=== PATIENT | female | born 1990 | race Caucasian/White ===

== ENCOUNTER 2024-04-30 03:36 | Outpatient (CLI) | payer OTHER, SELFPAY ==
[2024-04-30 14:22] LABS: Abs Immature Grans 0.07 10^3/uL (0.0-0.06); Absolute Basophil Count 0.02 10^3/uL (0.0-0.2); Absolute Eosinophil Count 0.37 10^3/uL (0.0-0.7); Absolute Lymphocyte Count 3.11 10^3/uL (1.2-3.4); Absolute Monocyte Count 0.57 10^3/uL (0.1-0.8); Basophils % 0.2 %; HCT 39.1 % (36.0-46.0); HGB 13.4 g/dL (11.2-15.7); Immature Grans % 0.6 %; Lymphocytes % 24.9 %; MCH 30.8 pg (27.0-33.0); MCHC 34.3 % (32.0-36.0); MCV 90 fL (80-95); MPV 10.1 fL (8.0-11.0); Monocytes % 4.6 %; Neutrophils % 66.7 %; Platelet Count 235 10^3/uL (130-400); RBC 4.35 10^6/uL (3.93-5.22); RDW 11.9 % (11.7-14.6); RDW-SD 39.2 fL; WBC 12.49 10^3/uL (4.4-10.8)
[2024-04-30 14:34] LABS: Absolute Neutrophil Count 8.33 10^3/uL (1.2-6.7)
[2024-05-01 09:18] LABS: Rubella IgG Ab (UVM) Positive (See Note); Varicella IgG Antibody Positive (See Note)
[2024-05-01 11:05] LABS: Hepatitis B Surface Ag Negative (Negative)
[2024-05-01 11:37] LABS: Hepatitis C Ab w Rflx HCV PCR Negative (Negative)
[2024-05-01 12:00] LABS: HIV-1/2 Ag & Ab Screen Negative (Negative)
[2024-05-02 15:27] LABS: Syphilis IgG w/Reflex Nonreactive (Nonreactive)
== END 2024-04-30 03:37 | disposition home or self-care (01) ==
LOC: LBO 03:37
PROVIDERS: PCP Family Medicine; Visit Provider Advanced Practice Midwife
DX: Z34.91 Encounter for supervision of normal pregnancy, unspecified, first trimester (principal)
CPT/HCPCS: 36415; 86787; 86803; 86850; 86900; 86901; 87340; 87389; 85025; 86762; 86780

== ENCOUNTER 2024-04-30 14:14 | Outpatient (REF) | payer OTHER, SELFPAY ==
[2024-05-01 12:56] LABS: Chlamydia Result Negative (Negative); GC Result Negative (Negative)
== END 2024-04-30 14:15 | disposition home or self-care (01) ==
LOC: LBN 14:14
PROVIDERS: PCP Family Medicine; Visit Provider Advanced Practice Midwife
DX: Z34.91 Encounter for supervision of normal pregnancy, unspecified, first trimester (principal)
CPT/HCPCS: 87491; 87591

== ENCOUNTER 2024-08-17 02:33 | Outpatient (CLI) | payer OTHER, SELFPAY ==
[2024-08-17 11:52] LABS: Glucose,1 Hr (Glucola) 129 mg/dL (80-140); HCT 36.8 % (36.0-46.0); HGB 12.3 g/dL (11.2-15.7); MCH 31.1 pg (27.0-33.0); MCHC 33.4 % (32.0-36.0); MCV 93 fL (80-95); MPV 9.8 fL (8.0-11.0); Platelet Count 200 10^3/uL (130-400); RBC 3.95 10^6/uL (3.93-5.22); RDW 12.1 % (11.7-14.6); RDW-SD 41.8 fL
== END 2024-08-17 02:34 | disposition home or self-care (01) ==
LOC: LBO 02:33
PROVIDERS: PCP Family Medicine; Visit Provider Advanced Practice Midwife
DX: Z34.92 Encounter for supervision of normal pregnancy, unspecified, second trimester (principal)
CPT/HCPCS: 36415; 82950; 85027

== ENCOUNTER 2024-10-14 01:41 | Outpatient (CLI) | payer OTHER, SELFPAY ==
--- NOTE | 2024-10-14 07:30 | DI.US_ITS ---
Exam(s) US OB CARMEN WEIGHT EXAM: US OB CARMEN WEIGHT CLINICAL HISTORY: TECHNIQUE: Ultrasound performed using standard protocol. COMPARISON: US US OB F/U FACIAL/LVOT/RVOT from 08/18/2024 FINDINGS: Again noted is a single viable intrauterine gestation with cardiac activity identified-137 BPM. The fetus is presently in breech position Placenta is fundal posterior grade 2, no evidence of placenta previa. With respect of the previously described 4.8 x 4.5 cm anterior uterine fibroid, this was not seen on today's study. There is normal amount of amniotic fluid with an CARMEN of 12.91 cm Dating parameters places at approximately 38 weeks and 1 day gestational age, implying JAMES of October 27, 2024 BPD measures 38 weeks and 4 days Head circumference measures 39 weeks and 6 days Abdominal circumference measures 37 weeks and 2 days Femur length measures 37 weeks and 0 days Estimated weight is 3275 grams: 7 pounds, 4 ounces. Fetus is at the 76th percentile on the Hadlock scale IMPRESSION: Single viable 3rd trimester gestation as described above. DATA REPOSITORY:
== END 2024-11-02 16:19 ==
LOC: DI 01:41 → OBS 11-02 16:13
PROVIDERS: PCP Family Medicine; Visit Provider Advanced Practice Midwife
DX: N85.8 Other specified noninflammatory disorders of uterus (principal); Z34.93 Encounter for supervision of normal pregnancy, unspecified, third trimester; Z3A.39 39 weeks gestation of pregnancy
CPT/HCPCS: 76816

== ENCOUNTER 2024-10-14 13:51 | Outpatient (REF) | payer OTHER, SELFPAY | END 2024-10-14 13:52 | disposition home or self-care (01) | LOC: LBN 13:51 | PROVIDERS: PCP Family Medicine; Visit Provider Advanced Practice Midwife | DX: Z34.93 Encounter for supervision of normal pregnancy, unspecified, third trimester (principal) | CPT/HCPCS: 87081 ==

== ENCOUNTER 2024-11-02 16:40 | Inpatient (IN) | payer OTHER, SELFPAY ==
[2024-11-02] VITALS (11 sets, daily range): BP systolic 114–144; BP diastolic 71–88; PULSE 72–93; TEMP 36.4–36.6
[2024-11-02 17:39] LABS: HCT 40.6 % (36.0-46.0); HGB 13.7 g/dL (11.2-15.7); MCH 30.7 pg (27.0-33.0); MCHC 33.7 % (32.0-36.0); MCV 91 fL (80-95); Platelet Count 183 10^3/uL (130-400); RBC 4.46 10^6/uL (3.93-5.22); RDW 12.3 % (11.7-14.6); RDW-SD 40.5 fL; WBC 13.23 10^3/uL (4.4-10.8)
--- NOTE | 2024-11-02 17:41 | W.PM.OBHPL1 ---
Date of service: 11/02/24 Time of Service: 17:41 Assessment and Plan Assessment and plan (1) Spontaneous onset of labor: Status: Acute Assessment and plan: Admit to Center and routine admission labs. Comfort measures. Anticipate . OB-HPI Labor/Delivery History of Present Illness Reason for Visit: Term Labor Chief Complaint: Uterine Contractions. JAMES Calculator Estimated Delivery Date Method Current WG Current Estimate 11/05/24 LMP (Certain) 39w 4d Other Estimates 11/03/24 Ultrasound #1 39w 6d Comments: Sherin began experiencing contractions at 2100 last night. She slept for 4 hours and mild contractions resumed at 0500 with scant bloody show. [facility] and stripping of membranes was performed by Quin Milan CNM. She returns with stronger contractions. History of Present Expected Delivery Route/Plan - CNM FOB-Mike Ramos (2nd child together) Does not wish to know gender- yes to circ if male Unmedicated, open to waterbirth, wants to move around GBS negative Specific Issues/Plan 1. Started care at [facility], L CL cyst noted on US. 2. Ovolacto-vegetarian. 3. Declined CfDNA, and AFP. 4. uterine mass vs fibroid identified on anatomy scan, consult with Dr. Burns, repeat US scheduled 4a. u/s 06/17/24: fundal/right placenta, anterior fibroid versus part of anterior aspect of the placenta, repeat 3rd trimester 4b. f/up u/s in 3rd trimester: @ 28 wks fibroid 4.8 x 4.5, anterior, size stable per report, fetus breech 4c. Recheck for fibroid size @ 36 wks, also EFW/CARMEN: 77th%, CARMEN 13, anterior fibroid not seen, breech 5. Breech presentation: desires ECV. Counselled 10/14 - scheduled 10/19. Baby Vertex! - Recheck presentation at next visit. Assessment: History Reviewed & Current PFSH All Active Problems (Updated 11/02/24 @ 17:45 by Johanna Almodovar CNM) Spontaneous onset of labor (Acute) Uterine mass (Acute) (Acute) Medical History (Updated 11/02/24 @ 17:45 by Johanna Almodovar CNM) Constipation Family History (Updated 04/30/24 @ 13:22 by Johanna Almodovar CNM) Maternal Grandmother No problems noted. Maternal Grandfather No problems noted. Father No problems noted. Social History (Updated 04/16/24 @ 11:38 by Johanna Almodovar CNM) Smoking/Tobacco Use Status: Never Smoking risk assessment performed?: Yes Alcohol Intake: never Drug use: Never Housing: house History History 2 Para 1 Hx # Term Pregnancies 1 Multiple births 0 Hx # Pregnancies 0 Ectopic pregnancies 0 AB induced 0 Hx Number of Living Children 1 AB spontaneous 0 Past Pregnancies Del. Date GA/Weeks # Preg Succ Route Wgt Sex Labor Lgth Anesthesia Location Prov Complic 05/29/21 39 No Yes vaginal 8 lb Female 12 hours local [place] Delivery Date: 05/29/21 Last Updated by: Johanna Almodovar CNM [employer] Meds Allergies and Home Medications Allergies Allergy/AdvReac Type Severity Reaction Status Date / Time No Known Allergies Allergy Verified 11/02/24 10:23 Home Medications ?Medication ?Instructions ?Recorded ?Confirmed ?Type lactobacillus combination no.4 3 3,000 mmu cells PO DAILY 04/30/24 11/02/24 History billion cell capsule (Probiotic) vitamin #56-iron 35 mg 1 cap PO DAILY 04/30/24 11/02/24 History and 5 mg-folic acid 1 mg-dha capsule magnesium 250 mg tablet 500 mg PO TID 09/14/24 11/02/24 History Exam Physical Exam Vital Signs Reviewed: Yes Constitutional Constitutional: mild distress Detailed Labor and Delivery Exam Dilation: 2 Effacement (%): 80 station: -2 Cervix position: posterior Consistency: soft Amin Score: Cervical Points Exam 0 1 2 3 Dilation Closed 1-2cm 3-4 cm 5-6cm Effacement 0-30% 40-50% 60-70% 80% Consistency Firm Medium Soft Station -3 -2 -1,0 +1,+2 Position Posterior Mid Anterior Amniotic Membrane Status: Intact Monitor Mode: External Contraction Frequency(min): every 3-4 min Contraction Duration(sec): 60 Contraction Intensity: Moderate/Strong Fetus A Heart Rate Baseline: 140 Monitor Accelerations: 15 X 15 Monitor Decelerations: None Variability: Moderate (6-25 BPM) Presentation: Cephalic Categories: Category I HEENT Exam HEENT Exam: Normal Respiratory Exam Respiratory Exam: Normal Cardiovascular Exam Cardiovascular Exam: Normal Abdominal Exam Abdominal Exam: Normal Exam Exam: Normal Extremities Exam Extremities Exam: Normal Skin Exam Skin Exam: Normal Psychiatric Exam Psychiatric Exam: Normal Results Abnormal Lab Findings: Abnormal Labs 11/02/24 17:30 WBC 13.23 H Risk Assessment Risk for Shoulder Dystocia Historical/Initial OB: NEGATIVE FOR: Pelvic Abnormality, Pre- BMI>30, Previous Shoulder Dystocia or Previous Macrosomia 36 Weeks: NEGATIVE FOR: Current Gestational DM, EFW>4500gms or Maternal Weight Gain>40lbs 40 Weeks: POSTIVE FOR: Maternal Weight Gain >40lb; NEGATIVE FOR: EFW> 4500 gms or Post Dates Increased Risk?: Yes Risk for Pre-Eclampsia Daily Dose ASA Indicated: No Yes, if one or more: NEGATIVE FOR: Hx Pre-E/Gest HTN, Chronic HTN, Multiple Gestation, Pre-gestational DM, Renal Disease, Systemic Lupus or APA Syndrome Yes, if 2 or more: NEGATIVE FOR: Nulliparity, Age>= 35 yrs, >10yr btwn pregnancies, BMI>30, ethinicty, Mother/Sister w/ Pre-E or Previous IUGR Risk for Post- Hemorrhage Initial: NEGATIVE FOR: Multiple Gestation, Previous PPH, Known Clotting Deficiency, Grand Multiparity or Anticoagulation 36 Weeks: NEGATIVE FOR: Anemia, hgb<10, Low platelets(thrombocytopenia), Gestational HTN or Pre-E, Polyhydraminios or EFW>4500gms 40 Weeks: NEGATIVE FOR: Anemia, hgb<10, Low platelets (thrombocytopenia), Gestation HTN or Pre-E, Polyhydraminios or EFW>4500gms At Risk?: No Counseled re: Active Management: Yes Risks Reviewed Risks Reviewed Upon Admission: Yes
--- NOTE | 2024-11-02 19:15 | W.PM.OBNL1 ---
Date of service: 11/02/24 Time of Service: 19:15 Pelvic Exam Dilation: 4 Effacement (%): 90 station: -1 Cervix Position: mid Consistency: soft Vaginal Exam Presentation: Cephalic Contractions Monitor Mode: External Contraction Frequency(min): every 3 min Contraction Duration(sec): 60 Intensity: Moderate/Strong Fetus A Monitor: Doppler Heart Rate Baseline: 125 Presentation: Cephalic FHR Rhythm: Regular Amniotic Membrane Status: Intact Assessment and Plan Assessment and plan (1) Spontaneous onset of labor: Status: Acute Assessment and plan: Offered tub or shower for comfort. AROM also offered and declined. Sherin would like to use the shower for comfort and that was prepared. Objective Abnormal lab results 11/02/24 Range/Units 17:30 WBC 13.23 H (4.4-10.8) 10^3/uL Laboratory Results WBC 13.23 10^3/uL (4.4-10.8) H 11/02/24 17:30 RBC 4.46 10^6/uL (3.93-5.22) 11/02/24 17:30 Hgb 13.7 g/dL (11.2-15.7) 11/02/24 17:30 Hct 40.6 % (36.0-46.0) 11/02/24 17:30 MCV 91 fL (80-95) 11/02/24 17:30 MCH 30.7 pg (27.0-33.0) 11/02/24 17:30 MCHC 33.7 % (32.0-36.0) 11/02/24 17:30 RDW 12.3 % (11.7-14.6) 11/02/24 17:30 Plt Count 183 10^3/uL (130-400) 11/02/24 17:30 MPV 10.0 fL (8.0-11.0) 11/02/24 17:30 ABO/Rh O Positive 11/02/24 17:30 Antibody Screen NEGATIVE 11/02/24 17:30 Vital Signs Reviewed: Yes Subjective Patient Reports: New Complaints Interval history since last seen: Contractions are stronger. She has been using hands and knees position for comfort and the birthing ball. She is receiving good labor support from her nurses and partner, Mike Results Hemoglobin/Hematocrit: Hgb 13.7 g/dL (11.2-15.7) 11/02/24 17:30 Hct 40.6 % (36.0-46.0) 11/02/24 17:30 Abnormal Lab Findings: Abnormal Labs 11/02/24 17:30 WBC 13.23 H
[2024-11-02] MEDS: Oxytocin 10 UNITS/ML VIAL IM (19:58)
[2024-11-02] MEDS: Lidocaine 1% Multi-Dose 20 ML VIAL IJ (20:20)
--- NOTE | 2024-11-02 20:57 | W.OBDELIVERY ---
Date of service: 11/02/24 Time of Service: 20:57 OB Labor/ Delivery Information Baby A Delivery Delivery Method: Spontaneaous Presentation: Cephalic Vertex Position: Right Occipital Posterior Cord Description-Baby A: 3 Vessels Amniotic Fluid: Clear Estimated Blood Loss: 250 Delivery Outcome: Liveborn Infant Transferred: Remains with Mother Note: Sherin progressed to 4 cms and used the tub for comfort on hands and knees on the ball. She returned to bed and membranes ruptured spontaneously. She began to bear down spontaneously. FHTs 120s during first stage of labor. FHTs 120s in second stage. She began pushing well. Second stage huddle was done. Spontaneous delivery of male delivered in KEL position with restitution to ROP position. Baby was placed on mother's abdomen and dried and stimulated. Spontaneous cry. Cord was clamped and cut by RN. The placenta delivered spontaneously and appears to by intact with a three vessel cord. Pitocin 10 units IM was administered before delivery of the placenta. The perineum was inspected and a second degree laceration was repaired. The baby did breastfeed. After delivery, Mother and baby and father of the baby were stable and bonding well in the delivery room and there were no complications. Providers Nurse Managing Jeweler: Johanna Almodovar Nurse: Mary Patel Nurse: Bea Kelsey Labor/Delivery Information Number of Babies in Womb: 1 Steroids Given: None Reason Steroids Not Administered: N/A Group Beta Strep: Negative Antibiotics Administered: No Rubella Status: Immune Blood Type: O+ Varicella Immunity: Immune Born En Route: No Maternal Complications: None Shoulder Dystocia: No Stages of Labor Onset of Labor Date: 11/01/24 Onset of Labor Time: 21:00 Complete Dilatation Date: 11/02/24 Complete Dilatation Time: 19:40 Labor - Stage 1 Duration: 22 hours and 40 minutes ROM Baby A: 11/02/24 ROM Baby A: 19:54 ROM Total Time- Baby A: [id number] Infant Delivery Date-Baby A: 11/02/24 Infant Delivery Time-Baby A: 19:55 Labor Stage 2 Duration: 15 minutes Placenta Delivery Date-Baby A: 11/02/24 Placenta Delivery Time-Baby A: 20:03 Labor-Stage 3 Duration: 8 minutes Total Length of Labor-Baby A: 22 hours and 55 minutes Placenta Cultured: No Placenta Status: Delivered Baby A Infant Gender: Male Gestational Status: Term (39-41.6 wks) Gestational Age in Weeks/Days: 39 Weeks and 4 Days Score-1 Minute Interval(Baby A) Heart Rate-1 minute: 100 BPM or Greater Respiratory Effort- 1 minute: Spontaneous/Strong Cry Muscle Tone-1 minute: Minimal Flexion/Extension Reflex Response-1 minute: Prompt Response Color-1 minute: Pallor or Cyanosis Total Score-1 minute: 7 Score-5 Minute Interval(Baby A) Heart Rate- 5 minute: 100 BPM or Greater Respiratory Effort-5 minute: Spontaneous/Strong Cry Muscle Tone-5 minute: Active Movement Reflex Response-5 minute: Prompt Response Color-5 minute: Bluish Hands or Feet Total Score- 5 minute: 9 Interventions Repair of Laceration Type: Perineal and Periurethral (bilateral, not repaired), Laceration Extension: First Degree. Sponge Count Correct: No Sponges Placed in Vagina, Sharp Count Correct: Yes. Laceration Repair Note: perineum repaired with 3-0 vicryl suture under local anesthetic and Sherin tolerated the procedure with coaching.
[2024-11-02] MEDS: Acetaminophen 325 MG TAB 650 MG PO (21:35)
[2024-11-02] MEDS: Ibuprofen 600 MG TAB PO (21:35)
[2024-11-02] MEDS: Hamamelis Leaf/Glycerin 100 EACH BOX PR (21:35)
[2024-11-02] MEDS: Dibucaine 1% 28 GM TUBE TP (21:35)
[2024-11-03 02:30] VITALS: BP 118/72; PULSE 91; RESP 18; TEMP 37.2
[2024-11-03 06:10] VITALS: BP 118/83; PULSE 91; TEMP 36.5
[2024-11-03 09:00] VITALS: BP 123/73; PULSE 94; RESP 17; TEMP 36.8; O2SAT 97
[2024-11-03 12:00] VITALS: BP 133/87; PULSE 90; RESP 18; TEMP 36.6; O2SAT 98
--- NOTE | 2024-11-03 13:35 | W.PM.OBPNV1 ---
Date of service: 11/03/24 Time of Service: 13:35 Assessment and Plan Assessment and plan (1) care and examination of lactating mother: Status: Acute Assessment and plan: Caring for baby independently. Pain is managed well without oral analgesics. Voiding without difficulty. well. A - stable mother and baby , Post day 1 P - Anticipate D/C tomorrow, circumcision done today. Subjective Subjective Patient comments: No complaints, Pain well controlled (perineal tenderness, no PO meds), Tolerating diet and Flatus present baby status: Doing well and Nursing well feeding status: Exclusively breast feeding Exam Physical Exam Vital signs: Temp Pulse Resp BP Pulse Ox 97.9 F 90 18 133/87 98 11/03/24 12:00 11/03/24 12:00 11/03/24 12:00 11/03/24 12:00 11/03/24 12:00 Vital Signs Reviewed: Yes Constitutional Constitutional: no acute distress Breast Exam Bilateral: Breast Exam: Soft Nipple Exam: Normal and Uninjured Respiratory Exam Respiratory Exam: Normal Cardiovascular Exam Cardiovascular Exam: Normal Abdominal Exam Abdomen: Diastasis Fundal Exam Fundus: Below Umbilicus and Firm Exam Perineum: Repair Intact Extremities Exam Extremity Exam: Normal Results Hemoglobin/Hematocrit: Hgb 13.7 g/dL (11.2-15.7) 11/02/24 17:30 Hct 40.6 % (36.0-46.0) 11/02/24 17:30 Abnormal Lab Findings: Abnormal Labs 11/02/24 17:30 WBC 13.23 H
[2024-11-03 20:04] VITALS: BP 129/80; PULSE 92; RESP 18; TEMP 36.9
[2024-11-04 08:00] VITALS: BP 125/82; PULSE 83; RESP 12; TEMP 36.7; O2SAT 98
--- NOTE | 2024-11-04 08:35 | W.PM.OBPNV1 ---
Date of service: 11/04/24 Time of Service: 08:36 Assessment and Plan Assessment and plan (1) care and examination of lactating mother: Status: Acute Assessment and plan: Caring for baby independently. Pain is managed well with oral analgesics. Voiding without difficulty. well. A - stable mother and baby , Post day 2 P - Discharge to home. Routine instructions. NFP for BCM. [facility] Subjective Subjective Interval history: PPD2, looking forward to discharge to home this morning. latching has improved over the last 24 hours, feeds are increasing in length. Mild cramping with , no PO meds needed. No BM yet, +flatus and +voiding. Bleeding lightening. Planning natural family planning for BC and condoms. Reviewed warning signs and general education. Dyaln supportive and at bedside. Patient comments: No complaints, Tolerating diet and Flatus present baby status: Nursing well and Strong Bonding Observed feeding status: Exclusively breast feeding Exam Physical Exam Vital signs: Temp Pulse Resp BP Pulse Ox 98.4 F 92 H 18 129/80 98 11/03/24 20:04 11/03/24 20:04 11/03/24 20:04 11/03/24 20:04 11/03/24 12:00 Vital Signs Reviewed: Yes Constitutional Constitutional: no acute distress Breast Exam Bilateral: Breast Exam: Soft Nipple Exam: Uninjured Respiratory Exam Respiratory Exam: Normal Cardiovascular Exam Cardiovascular Exam: Normal Abdominal Exam Abdomen: Diastasis Fundal Exam Fundus: Below Umbilicus and Firm Exam Perineum: Repair Intact Comments: lochia small rubra Extremities Exam Extremity Exam: Normal Neurological Exam Neurological Exam: Normal Psychiatric Exam Psychiatric Exam: Normal Results Hemoglobin/Hematocrit: Hgb 13.7 g/dL (11.2-15.7) 11/02/24 17:30 Hct 40.6 % (36.0-46.0) 11/02/24 17:30 Abnormal Lab Findings: Abnormal Labs 11/02/24 17:30 WBC 13.23 H
--- NOTE | 2024-11-04 08:42 | W.PM.OBDISCH ---
Date of service: 11/04/24 Time of Service: 08:43 DS: Diagnosis Discharge Diagnosis (1) care and examination of lactating mother: Status: Acute Asessment and Plan: Caring for baby independently. Pain is managed well with oral analgesics. Voiding without difficulty. well. A - stable mother and baby , Post day 2 P - Discharge to home. Routine post instructions. [facility] Discharge Plan Disposition Patient Disposition: Home Condition: Good Discharge Details Reason For Visit: Term Labor Admit Date/Time: 11/02/24 16:40 Admit Provider: Johanna Almodovar Attending Provider: Johanna Almodovar Primary Care Provider: Marito Knutson Home Meds and New Rx's Prescriptions: No Action PNV #[id number] acid-dha 35 mg iron-5 mg iron-1 mg capsule 1 cap PO DAILY Probiotic 3 billion cell capsule 3,000 mmu cells PO DAILY Rx Instructions: administer with a meal magnesium 250 mg tablet 500 mg PO TID Discharge Instructions Stand Alone Forms: BC Instructions, BC Post Vaginal Deliver Activity:: Activity as Tolerated Equipment/Supplies:: No Equipment Needed Diet:: Normal Diet Discharge Orders Discharge Orders: Discharge Order (Routine); Ordered 11/04/24 Ordered By: Quin Milan OB:DS Summary Summary Vaginal Delivery Method: Spontaneaous Laceration Description: Perineal and Periurethral (bilateral, not repaired) Laceration Extension: First Degree Contraception Discussed Contraception Discussed: Yes Contraceptive Plan: Not planning to use, [place] Gender-Baby A: Male weight: 7 lb 13.928 oz Status at Discharge Functional status at discharge: independent ambulation Overall status at discharge: patient is progressing back to baseline Mental Status: mental status grossly normal Speech and Movement: speech and movement normal Mood: congruent mood Affect: normal affect Quality:SDOH Health Related Social Needs: No Data to Display Hospital Course Spontaneous labor progressing to of term male Exam Physical Exam Vital signs: Temp Pulse Resp BP Pulse Ox 98.4 F 92 H 18 129/80 98 11/03/24 20:04 11/03/24 20:04 11/03/24 20:04 11/03/24 20:04 11/03/24 12:00 Constitutional Constitutional: no acute distress Breast Exam Bilateral: Breast Exam: Soft Respiratory Exam Respiratory Exam: Normal Cardiovascular Exam Cardiovascular Exam: Normal Abdominal Exam Abdomen: Diastasis Fundal Exam Fundus: Below Umbilicus and Firm Exam Perineum: Repair Intact Extremities Exam Extremity Exam: Normal Neurological Exam Neurological Exam: Normal Psychiatric Exam Psychiatric Exam: Normal PFSH All Active Problems (Updated 11/04/24 @ 08:43 by Quin Milan CNM) care and examination of lactating mother (Acute) Medical History (Updated 11/04/24 @ 08:43 by Quin Milan CNM) Uterine mass Constipation Family History (Updated 04/30/24 @ 13:22 by Johanna Almodovar CNM) Maternal Grandmother No problems noted. Maternal Grandfather No problems noted. Father No problems noted. Social History (Updated 04/16/24 @ 11:38 by Johanna Almodovar CNM) Smoking/Tobacco Use Status: Never Smoking risk assessment performed?: Yes Alcohol Intake: never Drug use: Never Housing: house History History 2 Para 2 Hx # Term Pregnancies 2 Multiple births 0 Hx # Pregnancies 0 Ectopic pregnancies 0 AB induced 0 Hx Number of Living Children 2 AB spontaneous 0 Past Pregnancies Del. Date GA/Weeks # Preg Succ Route Wgt Sex Labor Lgth Anesthesia Location Prov Complic 05/29/21 39 No Yes vaginal 8 lb Female 12 hours local [place] Delivery Date: 05/29/21 Last Updated by: BEBA Pinon DS: Data Vitals/I&O Vitals and I&O: Vital Signs Temperature 98.4 F 11/03/24 20:04 Temperature 97.5 F 11/02/24 16:45 Temperature Source Oral 11/03/24 20:04 Pulse 92 H 11/03/24 20:04 Pulse 90 11/02/24 16:45 Pulse Rhythm Regular 11/03/24 20:50 Respiratory Rate 18 11/03/24 20:04 Respiratory Depth Normal 11/03/24 16:50 Blood Pressure 129/80 11/03/24 20:04 Blood Pressure 134/87 11/02/24 16:45 Blood Pressure Mean 96 11/03/24 20:04 Pulse Oximetry 98 11/03/24 12:00 Oxygen Delivery Method Room Air 11/02/24 17:18 Oxygen Flow Rate 0 11/02/24 17:18 Comment Patient medicated for pain and cramping. Will reassess after she is finished nursing infant. 11/02/24 22:00 Intake & Output 11/03/24 11/03/24 11/04/24 11:59 23:59 11:59 Output Total 1000 / 1500 500 / 1500 Balance -1000 / -1500 -500 / -1500 Output: Urine 1000 / 1500 500 / 1500 Other: Urine Color Pale Yellow
[2024-11-06 03:47] VITALS: BP 116/78; PULSE 98
[2024-11-06 03:48] VITALS: PULSE 101
== END 2024-11-04 11:15 | disposition home or self-care (01) | DRG 807 ==
PROVIDERS: Admitting Provider Advanced Practice Midwife; PCP Family Medicine; Visit Provider Advanced Practice Midwife
DX: O34.13 Maternal care for benign tumor of corpus uteri, third trimester (principal); Z37.0 Single live birth; D25.9 Leiomyoma of uterus, unspecified; O70.1 Second degree perineal laceration during delivery; Z3A.39 39 weeks gestation of pregnancy
CPT/HCPCS: 85027; 86850; 86900; 86901; 59025; J2003; J2590